=== PATIENT | male | born 1985 | race American Indian/Alaskan Native ===

== ENCOUNTER 2021-03-01 10:36 | Emergency (ER) | payer OTHER ==
[2021-03-01] MEDS ORDERED: TETANUS,DIPH,PERTUSS(ACELL) VACCINE 0.5 ML SYRINGE IM ONE (12:01)
--- NOTE | 2021-03-01 12:01 | Emergency Department Report ---
- General Chief Complaint: Wound/Laceration Stated Complaint: LACERATION Time Seen by Provider: 03/01/21 11:14 Source: patient Mode of arrival: Ambulatory Limitations: No Limitations - History of Present Illness Initial Comments: 35-year-old male presents to the ER today with complaints of laceration to his chin. Patient states that around 2 AM this morning he woke up to use the bathroom, he states it was dark, tripped over something on the floor and fell and hit his chin on the dresser. He denies any LOC. He reports that he cleaned the wound with some peroxide. He states that is no longer bleeding. He reports some discomfort mainly around the wound but otherwise denies any headache, dizziness, neck pain, jaw pain, tooth pain or any additional symptoms. -: Sudden Location: other (chin) Place: home - Related Data Allergies Allergy/AdvReac Type Severity Reaction Status Date / Time primaquine Allergy Severe Bleeding Verified 03/01/21 10:51 ED Review of Systems ROS: Stated complaint: LACERATION Other details as noted in HPI Comment: All other systems reviewed and negative Constitutional: denies: chills, fever, malaise Eyes: denies: eye pain, eye discharge, vision change ENT: denies: ear pain, throat pain, dental pain, hearing loss, epistaxis, congestion Respiratory: denies: cough, shortness of breath, SOB with exertion, SOB at rest, wheezing Cardiovascular: denies: chest pain, palpitations Gastrointestinal: denies: abdominal pain, nausea, vomiting, diarrhea, constipation, hematemesis, hematochezia Genitourinary: denies: urgency, dysuria, frequency, hematuria, discharge, testicular pain, testicular mass Skin: other (Laceration chin) Neurological: denies: headache, weakness, numbness, paresthesias, confusion, abnormal gait, vertigo Psychiatric: denies: anxiety, depression Hematological/Lymphatic: denies: easy bleeding, easy bruising ED Physical Exam - General Limitations: No Limitations General appearance: alert, in no apparent distress - Head Head exam: Present: atraumatic, normocephalic, normal inspection - Eye Eye exam: Present: normal appearance, PERRL, EOMI Pupils: Present: normal accommodation - ENT ENT exam: Present: normal exam, mucous membranes moist, TM's normal bilaterally, other (No malocclusion. No facial tenderness except around the superficial laceration noted to the chin. Laceration measures about 3 cm. No crepitus noted. no tooth injury.) - Neck Neck exam: Present: normal inspection, full ROM. Absent: tenderness - Respiratory Respiratory exam: Present: normal lung sounds bilaterally. Absent: respiratory distress, wheezes, rales, rhonchi, stridor - Cardiovascular Cardiovascular Exam: Present: regular rate, normal rhythm, normal heart sounds - GI/Abdominal GI/Abdominal exam: Present: soft. Absent: distended, tenderness, guarding, rebound - Neurological Exam Neurological exam: Present: alert, oriented X3, CN II-XII intact, normal gait - Psychiatric Psychiatric exam: Present: normal affect, normal mood - Skin Skin exam: Present: intact ED Course Vital Signs 03/01/21 03/01/21 10:48 12:36 Temperature 98.4 F 98.2 F Pulse Rate 80 89 Respiratory 16 18 Rate Blood Pressure 141/94 Blood Pressure 138/74 [Left] O2 Sat by Pulse 98 99 Oximetry - Laceration /Wound Repair Face Wound Location: face (chin) Wound Length (cm): 3 Wound's Depth, Shape: superficial Wound Explored: clean Irrigated w/ Saline (ccs): 50 Betadine Prep?: Yes Anesthesia: 1% Lidocaine Volume Anesthetic (ccs): 5 Wound Repaired With: sutures Suture Size/Type: 4:0, proline Number of Sutures: 5 Sterile Dressing Applied?: Yes Progress: Patient tolerated procedure well without any complications. ED Medical Decision Making - Medical Decision Making Patient awake alert and oriented x3. He has a GCS of 15. He is neurologically intact with a normal gait. Laceration to the chin repaired by me. See procedure note for detail. His vital signs are stable. No evidence of any other significant trauma on exam requiring any additional testing at this time. Discussed wound care with patient. He expressed understanding of all instructions and agree with plan. Patient was stable at time of discharge. Critical care attestation.: If time is entered above; I have spent that time in minutes in the direct care of this critically ill patient, excluding procedure time. ED Disposition Clinical Impression: Laceration of chin Disposition: HOME / SELF CARE / HOMELESS Is pt being admited?: No Does the pt Need Aspirin: No Condition: Stable Instructions: Sutured Wound Care, [id number] Additional Instructions: Keep wound clean daily with soap and water. Dry well after each cleaning, then apply thin layer of neosporin to wound. Recommend that you do this daily until its time for the sutures to be removed to be in the next 5 to 7 days. He can take Tylenol and ibuprofen from [id number] with any pain. Referrals: PRIMARY CARE, [Primary Care Provider] - 3-5 Days Forms: Work/School Release Form(ED) Time of Disposition: 12:19
[2021-03-01] MEDS ORDERED: NEOMY 3.5 MG/BACIT 400 UNITS/POLY B 5000 UNITS/GM OINT PACKET TP ONE (12:03)
[2021-03-01 12:37] VITALS: BP 138/74
== END 2021-03-01 12:36 | disposition home or self-care (01) ==
LOC: ED 10:36
DX: S01.81XA Laceration without foreign body of other part of head, initial encounter (principal); W01.0XXA Fall on same level from slipping, tripping and stumbling without subsequent striking against object, initial encounter; Y93.89 Activity, other specified; Y92.89 Other specified places as the place of occurrence of the external cause; Y99.8 Other external cause status
CPT/HCPCS: 90471; 90715

== ENCOUNTER 2021-03-07 10:49 | Emergency (ER) | payer OTHER ==
[2021-03-07 11:52] VITALS: BP 159/105
--- NOTE | 2021-03-07 12:08 | Emergency Department Report ---
Suture/Staple Removal - HPI Chief Complaint: Laceration/Recheck/Suture Stated Complaint: STICH REMOVAL Time Seen by Provider: 03/07/21 11:53 When Sutures or Raj Placed: 5-7 Days Ago Wound Location: Chin ED Review of Systems ROS: Stated complaint: STICH REMOVAL Other details as noted in HPI Comment: All other systems reviewed and negative Suture Removal Exam - Exam General: Vital signs noted. No distress. Alert and acting appropriately. Wound: No Pathologic Erythema, No Tenderness, No Drainage, No Pus, No Wound Dehiscence Other Systems: All other systems reviewed and are unremarkable. ED Course Vital Signs 03/07/21 11:51 Temperature 98.0 F Respiratory 16 Rate Blood Pressure 159/105 ED Recheck MDM - Differential Diagnosis Suture/Staple Removal Critical care attestation.: If time is entered above; I have spent that time in minutes in the direct care of this critically ill patient, excluding procedure time. ED Disposition Clinical Impression: Visit for suture removal Disposition: 01 HOME / SELF CARE / HOMELESS Is pt being admited?: No Does the pt Need Aspirin: No Condition: Stable Instructions: Wound Closure Removal, Care After Additional Instructions: Keep area clean and dry. Time of Disposition: 12:20
== END 2021-03-07 13:02 | disposition home or self-care (01) ==
LOC: ED 10:49
DX: S01.81XD Laceration without foreign body of other part of head, subsequent encounter (principal); X58.XXXD Exposure to other specified factors, subsequent encounter
CPT/HCPCS: 99282